=== PATIENT | male | born 1990 | race Caucasian/White ===

== ENCOUNTER 2017-05-03 18:44 | Emergency (ER) | payer SELFPAY ==
[2017-05-03 19:19] VITALS: BP 129/88; PULSE 77; RESP 16; TEMP 98.3; O2SAT 98
--- NOTE | 2017-05-03 21:55 | ED PDOC ---
Lower Extremity Pain/Injury Time Seen by Provider: 05/03/17 20:19 Chief Complaint (Nursing): Lower Extremity Problem/Injury Chief Complaint (Provider): Lower Extremity Problem/Injury History Per: Patient History/Exam Limitations: no limitations Onset/Duration Of Symptoms: Days (x5) Additional Complaint(s): Brooke Leggett, 26 year old male presents to the ED for atraumatic, proximal left foot and ankle pain occurring for 5 days prior to arrival. He denies trauma, numbness, tingling, warmth, redness, or any history of similar previous episodes. PMD: None Provided Past Medical History Reviewed: Historical Data, Nursing Documentation, Vital Signs Vital Signs: Last Vital Signs Temp 98.3 F 05/03/17 19:16 Pulse 77 05/03/17 19:16 Resp 16 05/03/17 19:16 BP 129/88 05/03/17 19:16 Pulse Ox 98 05/03/17 19:16 - Medical History PMH: No Chronic Diseases - Family History Family History: States: Unknown Family Hx - Immunization History Hx Tetanus Toxoid Vaccination: No Hx Influenza Vaccination: No Hx Pneumococcal Vaccination: No - Home Medications Home Medications: Ambulatory Orders Medication Instructions Recorded Benzonatate 200 mg PO TID PRN #15 sgl 11/23/13 Mucinex 11/23/13 Naproxen [Naprosyn] 1 tab PO BID PRN #25 tab 11/23/13 Oseltamivir Phosphate [Tamiflu] 75 mg PO BID #10 cap 11/23/13 Meloxicam [Mobic] 7.5 mg PO DAILY PRN #30 tab 05/03/17 - Allergies Allergies/Adverse Reactions: Allergies Allergy/AdvReac Type Severity Reaction Status Date / Time No Known Allergies Allergy Unverified 11/23/13 17:25 Review of Systems ROS Statement: Except As Marked, All Systems Reviewed And Found Negative Musculoskeletal: Positive for: Foot Pain (left foot and ankle pain). Negative for: Other (no warmth or redness to left foot and ankle ) Neurological: Negative for: Numbness (and no tingling ) Physical Exam - Reviewed Nursing Documentation Reviewed: Yes Vital Signs Reviewed: Yes - Physical Exam Appears: Positive for: Well, Non-toxic, No Acute Distress Head Exam: Positive for: ATRAUMATIC, NORMAL INSPECTION, NORMOCEPHALIC Pulses-Dorsalis Pedis (L): 2+ Pulses-Dorsalis Pedis (R): 2+ Extremity: Positive for: Tenderness (minimal tenderness to medial surface of left foot and lateral malleolus ), Capillary Refill (<2 seconds ), Swelling ( minimal swelling on medial surface of left foot and lateral malleolus ) - ECG O2 Sat by Pulse Oximetry: 98 (RA) Pulse Ox Interpretation: Normal - Radiology X-Ray: Interpreted by Me (Foot/Ankle x-ray) X-Ray Interpretation: No Acute Disease Medical Decision Making Medical Decision Making: Impression: Atraumatic left foot and ankle pain occurring proximally Plan: * Ankle Left 3 Views Routine [RAD] * Foot Left Views 3 Views Routine [RAD] * Reevaluation Scribe Attestation: Documented by Malu Gardiner, acting as a scribe for Zechariah Elmore PA-C. Provider Scribe Attestation: All medical record entries made by the Scribe were at my direction and personally dictated by me. I have reviewed the chart and agree that the record accurately reflects my personal performance of the history, physical exam, medical decision making, and the department course for this patient. I have also personally directed, reviewed, and agree with the discharge instructions and disposition. Disposition - Clinical Impression Clinical Impression: Foot pain - Patient ED Disposition Is Patient to be Admitted: No - Disposition Referrals: Podiatry Clinic [Outside] Disposition: Routine/Home Disposition Time: 22:30 Condition: STABLE Additional Instructions: FOLLOW UP WITH PODIATRY CLINIC FOR FURTHER EVALUATION. Prescriptions: Meloxicam [Mobic] 7.5 mg PO DAILY PRN #30 tab PRN Reason: Pain, Mild (1-3) Instructions: Arthralgia (ED) Print Language: PASHTO
--- NOTE | 2017-05-04 15:26 | RAD ---
PROCEDURE: Left Ankle Radiographs. HISTORY: pain COMPARISON: None FINDINGS: BONES: Normal. No fracture. JOINTS: Normal. No osteoarthritis. Ankle mortise maintained. Talar dome intact SOFT TISSUES: Normal. OTHER FINDINGS: None. IMPRESSION: Normal left ankle radiographs.
--- NOTE | 2017-05-04 15:27 | RAD ---
PROCEDURE: Left Foot Radiographs. HISTORY: pain COMPARISON: None. FINDINGS: BONES: Normal. No fracture. JOINTS: Mild hallux valgus deformity. SOFT TISSUES: Normal. OTHER FINDINGS: None. IMPRESSION: No acute fracture dislocation. Mild hallux valgus deformity. .
== END 2017-05-03 23:15 | disposition home or self-care (01) ==
LOC: H.ER 18:44
DX: M79.672 Pain in left foot (principal)